=== PATIENT | female | born 1955 | race American Indian/Alaskan Native ===

== ENCOUNTER 2017-10-01 12:42 | Emergency (ER) | payer OTHER ==
[2017-10-01 12:42] VITALS: BMI 36.2
[2017-10-01 13:10] VITALS: RESP 16
--- NOTE | 2017-10-01 14:02 | C.PDOC ---
Time Seen by Provider: 10/01/17 13:12 Chief Complaint (Nursing): Cough, Cold, Congestion History Per: Patient Onset/Duration Of Symptoms: Days (2) Current Symptoms Are (Timing): Still Present Associated Symptoms: Sore Throat, Cough, Myalgias, Nasal Congestion Severity: Moderate Recent travel outside of the [place]: No Additional History Per: Prior Records Past Medical History Reviewed: Historical Data, Nursing Documentation, Vital Signs Vital Signs: Last Vital Signs Temp 98.3 F 10/01/17 13:07 Pulse 91 H 10/01/17 13:07 Resp 16 10/01/17 13:07 BP 171/107 H 10/01/17 13:07 Pulse Ox 97 10/01/17 13:07 - Medical History PMH: Colonic Polyps, Depression (DUE TO RESTLESS LEG SYNDROME), HTN - [facility] Procedures CLOSED ENDOSCOPIC BIOPSY OF LARGE INTESTINE (10/27/14) ESOPHAGOGASTRODUODENOSCOPY [EGD] W/CLOSED BIOPSY (10/27/14) Family History: States: Unknown Family Hx - Social History Hx Tobacco Use: No Hx Alcohol Use: No Hx Substance Use: No - Immunization History Hx Tetanus Toxoid Vaccination: No Hx Influenza Vaccination: No Hx Pneumococcal Vaccination: No Review Of Systems Except As Marked, All Systems Reviewed And Found Negative. Constitutional: Positive for: Malaise ENT: Positive for: Nose Congestion, Throat Pain Cardiovascular: Negative for: Chest Pain Respiratory: Positive for: Cough. Negative for: Shortness of Breath, Hemoptysis Gastrointestinal: Negative for: Vomiting, Abdominal Pain, Diarrhea Genitourinary: Negative for: Dysuria Musculoskeletal: Negative for: Neck Pain, Back Pain Skin: Negative for: Rash Neurological: Negative for: Weakness, Numbness, Seizures, Altered Mental Status Physical Exam - Physical Exam Appears: Non-toxic, No Acute Distress Skin: Normal Color, Warm, Dry, No Rash Head: Atraumatic, Normacephalic Eye(s): bilateral: Normal Inspection, PERRL, EOMI Oral Mucosa: Moist Throat: Erythema, No Exudate, No Drooling, No Mass Neck: Normal ROM, Supple Cardiovascular: Rhythm Regular Respiratory: Normal Breath Sounds, No Accessory Muscle Use Gastrointestinal/Abdominal: Soft, No Tenderness Back: No CVA Tenderness Extremity: Normal ROM Neurological/Psych: Oriented x3, Normal Speech, Normal Motor, Normal Sensation ED Course And Treatment O2 Sat by Pulse Oximetry: 97 Pulse Ox Interpretation: Normal Reassessment Condition: Improved Disposition Counseled Patient/Family Regarding: Studies Performed, Diagnosis, Need For Followup, Rx Given - Disposition Referrals: Sayra Goodwin MD [Non-Staff] - Disposition: HOME/ ROUTINE Disposition Time: 14:02 Condition: STABLE Additional Instructions: Follow up with your doctor this week. Return to the ER if you develop high fever , lethargy, shortness of breath, worsening of symptoms or if you have any other concerns. Prescriptions: Acetaminophen [Tylenol Extra Strength] 2 tab PO Q6 PRN #30 tablet PRN Reason: Pain, Moderate (4-7) Guaifenesin/Dextromethorphan [Mucinex Dm ER 1,200-60 mg Tab] 1 tab PO BID PRN # 14 tab.er.12h PRN Reason: Cough And Congestion Instructions: Cold Symptoms (ED) - Clinical Impression Clinical Impression: Upper respiratory infection
[2017-10-01 14:17] VITALS: BP 129/77; PULSE 69; TEMP 98.1; O2SAT 99
== END 2017-10-01 14:18 | disposition home or self-care (01) ==
LOC: C.ER 12:42
DX: J06.9 Acute upper respiratory infection, unspecified (principal); I10 Essential (primary) hypertension

== ENCOUNTER 2018-02-02 12:15 | Emergency (ER) | payer OTHER ==
[2018-02-02 12:39] VITALS: BMI 36.6
[2018-02-02 14:56] VITALS: BP 115/70; PULSE 80; RESP 18; TEMP 98.8; O2SAT 100
--- NOTE | 2018-02-02 18:18 | C.PDOC ---
History Of Present Illness 62 year old female presents to the ED for evaluation of right leg swelling which has progressed over the past 1-2 weeks. 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 Patient denies fever, chills, chest pain, shortness of breath , cough, recent travel or trauma. Chief Complaint (Nursing): Lower Extremity Problem/Injury History Per: Patient History/Exam Limitations: no limitations Onset/Duration Of Symptoms: Other (1-2 weeks ) Current Symptoms Are (Timing): Still Present Recent travel outside of the [place]: No Additional History Per: Patient Past Medical History Reviewed: Historical Data, Nursing Documentation, Vital Signs Vital Signs: Last Vital Signs Temp 98.8 F 02/02/18 14:45 Pulse 80 02/02/18 14:45 Resp 18 02/02/18 14:45 BP 115/70 02/02/18 14:45 Pulse Ox 100 02/02/18 18:22 - Medical History PMH: Colonic Polyps, Depression (DUE TO RESTLESS LEG SYNDROME), HTN Denies: Chronic Kidney Disease Surgical History: No Surg Hx - [facility] Procedures CLOSED ENDOSCOPIC BIOPSY OF LARGE INTESTINE (10/27/14) ESOPHAGOGASTRODUODENOSCOPY [EGD] W/CLOSED BIOPSY (10/27/14) Family History: States: Unknown Family Hx - Social History Hx Tobacco Use: No Hx Alcohol Use: No Hx Substance Use: No - Immunization History Hx Tetanus Toxoid Vaccination: No Hx Influenza Vaccination: No Hx Pneumococcal Vaccination: No Review Of Systems Constitutional: Negative for: Fever, Chills Respiratory: Negative for: Cough, Shortness of Breath Skin: Positive for: Other (right leg swelling ) Physical Exam - Physical Exam Appears: Non-toxic, No Acute Distress Skin: Normal Color, Warm, Dry Head: Atraumatic, Normacephalic Eye(s): bilateral: Normal Inspection Oral Mucosa: Moist Neck: Supple Chest: Symmetrical, No Deformity, No Tenderness Cardiovascular: Rhythm Regular, No Murmur Respiratory: Normal Breath Sounds, No Rales, No Rhonchi, No Wheezing Extremity: Normal ROM, No Tenderness, Capillary Refill (less than 2 seconds ), No Deformity, No Swelling Neurological/Psych: Oriented x3, Normal Speech, Normal Cognition Gait: Steady ED Course And Treatment O2 Sat by Pulse Oximetry: 100 (on RA) Pulse Ox Interpretation: Normal Medical Decision Making Medical Decision Making: Impression: 62 y/o female with right leg swelling Plan: * Venous Duplex Scan Right lower Extremity * reassess and disposition Progress: Venous Duplex Scan Right Lower extremity ordered. Disposition - Disposition Referrals: Key Farah MD [Staff Provider] - Disposition: HOME/ ROUTINE Disposition Time: 13:50 Condition: GOOD Additional Instructions: Thank you for letting us take care of you today. The emergency medical care you received today was directed at your acute symptoms. If you were prescribed any medication, please fill it and take as directed. It may take several days for your symptoms to resolve. Return to the Emergency Department if your symptoms worsen, do not improve, or if you have any other problems. Please contact your doctor or call one of the physicians/clinics you have been referred to that are listed on the Patient Visit Information form that is included in your discharge packet. Bring any paperwork you were given at discharge with you along with any medications you are taking to your follow up visit. Our treatment cannot replace ongoing medical care by a primary care provider (PCP) outside of the emergency department. Thank you for allowing the [facility] team to be part of your care today. Follow up with the orthopedic doctor doctor in 3-5 days for re-evaluation and further management. Prescriptions: traMADol [Ultram] 50 mg PO Q8 PRN #15 tab PRN Reason: Pain, Severe (8-10) Instructions: Chronic Knee Pain (DC) Forms: [employer] (Kiswahili) - Clinical Impression Clinical Impression: Chronic knee pain - Scribe Statement The provider has reviewed the documentation as recorded by the Scribe (Shellie Reed) Provider Attestation: All medical record entries made by the Scribe were at my direction and personally dictated by me. I have reviewed the chart and agree that the record accurately reflects my personal performance of the history, physical exam, medical decision making, and the department course for this patient. I have also personally directed, reviewed, and agree with the discharge instructions and disposition.
--- NOTE | 2018-02-03 10:03 | VASCLAB ---
PROCEDURE: Right Lower Extremity Venous Duplex Exam. HISTORY: leg swelling - r/o DVT PRIORS: None. TECHNIQUE: Right common femoral, femoral, popliteal and posterior tibial, peroneal and great saphenous veins were evaluated. Flow was assessed with color Doppler, compressibility, assessment of phasic flow and augmentation response. Report prepared by VIRI Matson, RVT FINDINGS: RIGHT: 1. Common Femoral Vein: 1.1. Compressibility - Fully compressible: Thrombus - None: Flow - Phasic: Augmentation -Normal: Reflux - None. 2. Femoral Vein: 2.1. Compressibility - Fully compressible: Thrombus - None: Flow - Phasic: Augmentation -Normal: Reflux - None. 3. Popliteal Vein: 3.1. Compressibility - Fully compressible: Thrombus - None: Flow - Phasic: Augmentation -Normal: Reflux - None. 4. Posterior Tibial Vein: 4.1. Compressibility - Fully compressible: Thrombus - None: Flow - Phasic: Augmentation -Normal: Reflux - None. 5. Peroneal Vein: 5.1. Compressibility - Fully compressible: Thrombus - None: Flow - Phasic: Augmentation -Normal: Reflux - None. 6. Great Saphenous Vein: 6.1. Compressibility - Fully compressible: Thrombus -None: Flow - Phasic: Augmentation - Normal: Reflux - None. OTHER FINDINGS: IMPRESSION: No evidence of deep or superficial vein thrombosis of the right lower extremity with excellent venous flow. Normal valve function noted of the right side. Normal venous flow noted in the left common femoral vein.
== END 2018-02-02 14:58 | disposition home or self-care (01) ==
LOC: C.ER 12:15
DX: G89.29 Other chronic pain (principal); M25.561 Pain in right knee; I10 Essential (primary) hypertension

== ENCOUNTER 2018-08-06 10:16 | Emergency (ER) | payer OTHER ==
[2018-08-06 10:17] VITALS: BMI 36.6
[2018-08-06 10:30] VITALS: RESP 18; O2SAT 97
[2018-08-06 11:30] LABS: BASO # 0.1 K/uL (0.0-0.2); BASO % 1.2 % (0.0-2.0); EOS # 0.2 K/uL (0.0-0.7); EOS % 2.7 % (0.0-4.0); LYMPH # 1.7 K/uL (1.0-4.3); LYMPH % 19.9 % (20.0-40.0); MEAN CELL VOLUME 84.3 fL (81.0-99.0); MEAN CORPUSCULAR HEMOGLOBIN 27.6 pg (27.0-31.0); MEAN CORPUSCULAR HGB CONC 32.7 g/dL (33.0-37.0); MEAN PLATELET VOLUME 7.3 fL (7.2-11.7); MONO # 0.4 K/uL (0.0-0.8); MONO % 5.1 % (0.0-10.0); NEUT % 71.1 % (50.0-75.0); RBC 4.71 Mil/uL (3.80-5.20); RED CELL DISTRIBUTION WIDTH 16.1 % (11.5-14.5); WHITE BLOOD COUNT 8.4 K/uL (4.8-10.8)
[2018-08-06 11:41] LABS: BLOOD UREA NITROGEN 16 mg/dL (7-17); CALCIUM 8.5 mg/dl (8.6-10.4); GFR NON-AFRICAN AMERICAN > 60
[2018-08-06 11:42] LABS: ALB/GLOB RATIO 1.1 (1.0-2.1); ALBUMIN 3.7 g/dL (3.5-5.0); ALT/SGPT 16 U/L (9-52); AST/SGOT 32 U/L (14-36)
[2018-08-06 11:54] LABS: CK-MB 0.69 ng/mL (0.0-3.38)
[2018-08-06 12:32] VITALS: BP 155/94; PULSE 80; TEMP 98.4
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
--- NOTE | 2018-08-06 13:42 | RAD ---
Date of service: 08/06/2018 PROCEDURE: CHEST RADIOGRAPH, 1 VIEW HISTORY: CP COMPARISON: 10/20/2016 FINDINGS: LUNGS: No interval consolidation. Vague increased density over each inferior hemithorax attributed to body habitus. PLEURA: No pneumothorax or pleural fluid seen. CARDIOVASCULAR: Cardiomegaly and tortuosity of the thoracic aorta. There is presence aortic atherosclerotic calcification on x-ray. This is believed faint and minimal in degree at the aortic knob level. Pulmonary vasculature [id number]-[id number]-[id number]-appearing OSSEOUS STRUCTURES: No significant abnormalities. VISUALIZED UPPER ABDOMEN: Normal. OTHER FINDINGS: None. IMPRESSION: No interval acute cardiopulmonary pathology noted. Cardiomegaly-similar
--- NOTE | 2018-08-07 19:48 | CARD ---
APPROVED REPORT Date of service: 08/06/2018 EKG Measurement Heart [id number] <Conclusion> Normal sinus rhythm Possible Left atrial enlargement Borderline ECG
== END 2018-08-06 13:19 | disposition home or self-care (01) ==
LOC: C.ER 10:16
DX: R07.89 Other chest pain (principal); M25.512 Pain in left shoulder; I10 Essential (primary) hypertension

== ENCOUNTER 2018-11-01 14:05 | Emergency (ER) | payer OTHER ==
[2018-11-01 14:32] VITALS: BMI 36.2
[2018-11-01 14:39] VITALS: BP 142/88; PULSE 77; RESP 18; TEMP 98.1; O2SAT 95
--- NOTE | 2018-11-01 16:03 | C.PDOC ---
History Of Present Illness 62 y/o female with a PMHx of HTN presents to the ED with pain to the right hip and buttocks, radiating down the right leg on and off for 3 weeks. Patient states pain is worse at night, and often wakes her at 4AM. She is able to bear weight on the right. Denies any extremity weakness or numbness. Patient is also complaining of joint pain to the bilateral ankles and knees. States her doctor referred her to have blood work at [facility]. Time Seen by Provider: 11/01/18 14:42 Chief Complaint (Nursing): Hip Pain History Per: Patient History/Exam Limitations: no limitations Onset/Duration Of Symptoms: Days Current Symptoms Are (Timing): Still Present Past Medical History Reviewed: Historical Data, Nursing Documentation, Vital Signs Vital Signs: Last Vital Signs Temp 98.1 F 11/01/18 14:37 Pulse 77 11/01/18 14:37 Resp 18 11/01/18 14:37 BP 142/88 11/01/18 14:37 Pulse Ox 95 11/01/18 14:37 - Medical History PMH: Colonic Polyps, Depression (DUE TO RESTLESS LEG SYNDROME), HTN (denies) Denies: Chronic Kidney Disease - [facility] Procedures CLOSED ENDOSCOPIC BIOPSY OF LARGE INTESTINE (10/27/14) ESOPHAGOGASTRODUODENOSCOPY [EGD] W/CLOSED BIOPSY (10/27/14) Family History: States: Unknown Family Hx - Social History Hx Tobacco Use: No Hx Alcohol Use: No Hx Substance Use: No - Immunization History Hx Tetanus Toxoid Vaccination: No Hx Influenza Vaccination: No Hx Pneumococcal Vaccination: No Review Of Systems Except As Marked, All Systems Reviewed And Found Negative. Constitutional: Negative for: Fever Musculoskeletal: Positive for: Leg Pain (Right hips down the right leg), Other (Joint pain to ankles and knees) Skin: Negative for: Rash Neurological: Negative for: Weakness, Numbness, Incoordination Physical Exam - Physical Exam Appears: Well, Non-toxic, No Acute Distress Skin: Normal Color, Warm, No Rash Head: Atraumatic, Normacephalic Eye(s): bilateral: Normal Inspection Neck: Normal ROM Chest: Symmetrical Back: Normal Inspection Extremity: Normal ROM, Tenderness (mild tenderness to the right buttock), Capillary Refill (< 2 sec), No Deformity, No Swelling Pulses: Left Dorsalis Pedis: Normal, Right Dorsalis Pedis: Normal Neurological/Psych: Oriented x3, Normal Motor, Normal Sensation ED Course And Treatment O2 Sat by Pulse Oximetry: 95 (RA) Pulse Ox Interpretation: Normal Medical Decision Making Medical Decision Making: Impression: Back Pain, Sciatica Plan: --Motrin 600 mg PO --Tylenol 975 mg PO --Prednisone 40 mg PO --Reassess after meds 16:00 Patient reports improvement in pain and feels comfortable going home. Disposition Counseled Patient/Family Regarding: Diagnosis, Need For Followup, Rx Given - Disposition Disposition: HOME/ ROUTINE Disposition Time: 16:00 Condition: STABLE Prescriptions: Ibuprofen [Motrin] 600 mg PO TID #15 tab Prednisone [Deltasone] 40 mg PO DAILY #8 tablet Instructions: Sciatica Forms: [facility] (Sammarinese), General Discharge Instructions - POA Present On Arrival: None - Clinical Impression Clinical Impression: Hip pain, Sciatica - Scribe Statement The provider has reviewed the documentation as recorded by the Tucker Astudillo Provider Attestation: All medical record entries made by the Tucker were at my direction and personally dictated by me. I have reviewed the chart and agree that the record accurately reflects my personal performance of the history, physical exam, medical decision making, and the department course for this patient. I have also personally directed, reviewed, and agree with the discharge instructions and disposition.
== END 2018-11-01 16:13 | disposition home or self-care (01) ==
LOC: C.ER 14:05
DX: M25.551 Pain in right hip (principal); M54.30 Sciatica, unspecified side; I10 Essential (primary) hypertension

== ENCOUNTER 2019-01-05 17:38 | Emergency (ER) | payer OTHER ==
[2019-01-05 17:38] VITALS: BMI 36.2
[2019-01-05 17:54] VITALS: BP 151/84; PULSE 93; RESP 18; TEMP 98.7; O2SAT 99
--- NOTE | 2019-01-05 18:09 | C.PDOC ---
History Of Present Illness 63 y/o female, with history of hypertension, comes in with her friend and decided to get checked out while shes because she isnt taking her blood pressure medications. Patient reports she stopped taking them because the medications her doctor gave her were on a list that has been recalled. When she saw her doctor again and given new medications, they were also on the recall list, so patient is not taking any medications currently. She denies any headache, chest pain, dizziness, SOB, chills, or palpitations. Patient also has a longstanding complaint of difficulty swallowing since 1.5 years ago after she was given gadolinium contrast for an MRI. She reports she is able to tolerate PO well and denies any drooling or pain. States she has a scheduled endoscopy on 01/27/19. Patient also complains of SOB that she would get for the past year after walking 5-6 blocks or several flights of stairs. Time Seen by Provider: 01/05/19 17:59 Chief Complaint (Nursing): Medical Clearance History Per: Patient History/Exam Limitations: no limitations Onset/Duration Of Symptoms: Days Current Symptoms Are (Timing): Still Present Past Medical History Reviewed: Historical Data, Nursing Documentation, Vital Signs Vital Signs: Last Vital Signs Temp 98.7 F 01/05/19 17:50 Pulse 93 H 01/05/19 17:50 Resp 18 01/05/19 17:50 BP 151/84 H 01/05/19 17:50 Pulse Ox 99 01/05/19 17:50 - Medical History PMH: Colonic Polyps, Depression (DUE TO RESTLESS LEG SYNDROME), HTN Denies: Chronic Kidney Disease - [facility] Procedures CLOSED ENDOSCOPIC BIOPSY OF LARGE INTESTINE (10/27/14) ESOPHAGOGASTRODUODENOSCOPY [EGD] W/CLOSED BIOPSY (10/27/14) Family History: States: No Known Family Hx - Social History Hx Tobacco Use: No Hx Alcohol Use: No Hx Substance Use: No - Immunization History Hx Tetanus Toxoid Vaccination: No Hx Influenza Vaccination: No Hx Pneumococcal Vaccination: No Review Of Systems Except As Marked, All Systems Reviewed And Found Negative. Constitutional: Negative for: Fever, Chills ENT: Positive for: Other (difficulty swallowing) Cardiovascular: Negative for: Chest Pain, Palpitations Respiratory: Negative for: Shortness of Breath Neurological: Negative for: Headache, Dizziness Physical Exam - Physical Exam Appears: Non-toxic, No Acute Distress Skin: Warm, Dry Head: Atraumatic, Normacephalic Eye(s): bilateral: Normal Inspection Oral Mucosa: Moist Throat: Normal, No Erythema Chest: Symmetrical Cardiovascular: No Murmur Respiratory: Normal Breath Sounds, No Rales, No Rhonchi, No Wheezing Gastrointestinal/Abdominal: Soft, No Tenderness Extremity: No Pedal Edema Extremity: Bilateral: Normal Color And Temperature, Normal ROM Neurological/Psych: Oriented x3, Normal Speech, Normal Cognition ED Course And Treatment O2 Sat by Pulse Oximetry: 99 (RA) Pulse Ox Interpretation: Normal Disposition Counseled Patient/Family Regarding: Need For Followup - Disposition Disposition: HOME/ ROUTINE Disposition Time: 18:08 Condition: STABLE Instructions: High Blood Pressure in Adults, Dysphagia (DC) Forms: [facility] (Citizen Of [place]), General Discharge Instructions - Clinical Impression Clinical Impression: Dysphagia, Hypertension - Scribe Statement The provider has reviewed the documentation as recorded by the Tucker Anderson Provider Attestation: All medical record entries made by the Ursulaibben were at my direction and personally dictated by me. I have reviewed the chart and agree that the record accurately reflects my personal performance of the history, physical exam, medical decision making, and the department course for this patient. I have also personally directed, reviewed, and agree with the discharge instructions and disposition.
== END 2019-01-05 18:18 | disposition home or self-care (01) ==
LOC: C.ER 17:38
DX: R13.10 Dysphagia, unspecified (principal); I10 Essential (primary) hypertension

== ENCOUNTER 2019-02-20 07:05 | Day surgery (SDC) | payer OTHER ==
[2019-02-20] MEDS ORDERED: Lactated Ringer's 1,000 ML IV ONE (08:50)
[2019-02-20] MEDS ORDERED: Propofol 10 mg/ml Inj (20 ML) ONE ×3 (08:54→09:17)
[2019-02-20 10:14] VITALS: TEMP 97.8; O2SAT 100
[2019-02-20 10:15] VITALS: PULSE 98
[2019-02-20 11:15] VITALS: BP 139/89; RESP 17
== END 2019-02-20 10:30 | disposition home or self-care (01) ==
LOC: C.ENDO 07:05
PROVIDERS: ATTEND Internal Medicine Gastroenterology
DX: Z12.11 Encounter for screening for malignant neoplasm of colon (principal); R13.10 Dysphagia, unspecified; K21.0 Gastro-esophageal reflux disease with esophagitis; K44.9 Diaphragmatic hernia without obstruction or gangrene; K29.50 Unspecified chronic gastritis without bleeding; K64.1 Second degree hemorrhoids; K63.5 Polyp of colon
CPT/HCPCS: 43239; 45385; 88305; 88312; 88342; J2001; J2704; J7120